=== PATIENT | female | born 1965 | race Caucasian/White ===

== ENCOUNTER 2017-01-23 11:08 | Emergency (ER) | payer OTHER ==
[~2017-01-23] VITALS: Ht 154.9 cm; Wt 90.0 kg
[~2017-01-23 11:08] MED LIST: ADVAIR DISK1 IN; ALEVE220 M1 PO; ATIVAN OR; BP MED; CIPROFLOXACN500 MG PO; LEXAPRO10 MG OR; LORTAB5 PO; NAPROSYN500 MG OR; NEXIUM40 M1 PO; PROTONIX40 MG OR; [UNRECOGNIZED DRUG - OTHER]
[2017-01-23 12:21] LABS: HEMATOCRIT 46.2 % (37.0-47.0); HEMOGLOBIN 15.1 g/dl (12.0-16.0); IMMATURE GRANULOCYTES 0.5 % (0.0-1.0); MEAN CELL VOLUME 87.5 fL CALC (80.0-100.0); MEAN CORPUSCULAR HGB 28.6 pG CALC (26.0-32.0); MEAN CORPUSCULAR HGB CONC 32.7 g/L CALC (32.0-36.0); NEUT# 8.62 thou/uL (2.00-7.15); RED BLOOD COUNT 5.28 mill/uL (4.20-5.60); RED CELL DISTRI WIDTH 13.5 % (11.5-15.5)
[2017-01-23 12:26] LABS: URINE AMORPH SEDIMENT FEW hpf (NONE-FEW); URINE BACTERIA FEW hpf; URINE MUCUS FEW hpf (NONE-FEW); URINE SQUAMOUS EPITHELIAL CELL MANY EPI/hpf (0-FEW)
[2017-01-23 12:27] LABS: URINE RBC >100 RBC/hpf (0-5)
[2017-01-23 12:37] LABS: ALBUMIN 4.9 g/dL (3.2-5.0); ALKALINE PHOSPHATASE 87 u/l (38-126); AMYLASE 82 u/l (30-110); ANION GAP 19 (6-22 (CALC)); BILIRUBIN, TOTAL 0.7 mg/dL (0.0-1.4); BUN 12 mg/dL (7-17); BUN/CREATININE RATIO 14 (12-20 (CALC)); CALCIUM 9.9 mg/dL (8.4-10.2); CARBON DIOXIDE 27 mmol/l (22-30); CHLORIDE 99 mmol/l (95-108); CREATININE 0.9 mg/dL (0.5-1.0); GFR > 60 ML/MIN (>=60 (CALC)); GFR FOR AFR.AMER. > 60 ML/MIN (>=60 (CALC)); GLUCOSE 96 mg/dL (65-105); LIPASE 77 u/l (23-300); POTASSIUM 3.5 mmol/l (3.5-5.1); SGOT/AST 23 u/l (14-36); SGPT/ALT 27 u/l (9-52); SODIUM 142 mmol/l (137-146); TOTAL PROTEIN 9.3 g/dL (6.3-8.2)
[2017-01-23] MEDS ORDERED: LORTAB 5-325 MG1 TAB PO (13:27)
[2017-01-23] MEDS ORDERED: TAMSULOSIN0.4 MG PO (13:27)
[2017-01-23] MEDS ORDERED: CIPROFLOXACN500 MG PO (13:27)
[2017-01-23 14:11] VITALS: BP 165/101
== END 2017-01-23 14:20 | disposition home or self-care (01) | DRG 305 ==
LOC: ED 11:08
PROVIDERS: Emergency Medicine
DX: I10 Essential (primary) hypertension (principal); N20.1 Calculus of ureter; J45.909 Unspecified asthma, uncomplicated; E03.9 Hypothyroidism, unspecified; Z98.84 Bariatric surgery status; F17.210 Nicotine dependence, cigarettes, uncomplicated; Z87.442 Personal history of urinary calculi